=== PATIENT | male | born 1935 | race Caucasian/White ===

== ENCOUNTER → 2020-10-13 | Day surgery (SDC) | payer MEDICARE, OTHER ==
[~2020-10-13] VITALS: Ht 172.7 cm; Wt 95.2 kg
[~2020-10-13] MED LIST: AMLODIPINE BESYL5 MG PO; ASPIRIN EC81 MG PO; CETIRIZINE HCL10 MG PO; FINASTERIDE5 MG PO; FLUTICASONE PRO16 GM; JANUVIA 100MG100 MG PO; LEVOTHYROXINE100 MCG PO; LISINOPRIL40 MG PO; METFORMIN HCL500 M3 PO; PERCOCET 5-3251 EACH PO; SERTRALINE HCL50 MG PO; TAMSULOSIN HCL0.4 MG PO; VITAMIN B12-FO1 EACH PO
[2020-10-13 11:43] LABS: HCT 38.4 % (42.0-52.0); HGB 13.6 g/dl (13.2-18.0); MCH 35.4 pg (25.0-31.0); MCHC 35.4 g/dL (32.0-36.0); MPV 10.5 fL (6.0-9.5); RBC 3.84 M/uL (4.70-6.00); RDW 12.5 % (11.5-14.0); WBC 3.3 K/uL (4.0-10.5)
[2020-10-13 11:52] LABS: ALBUMIN 3.8 g/dL (3.4-5.0); CREATININE 0.77 mg/dL (0.67-1.17); GLOBULIN (CALCULATION) 3.9 g/dL; POTASSIUM 4.3 mmol/L (3.5-5.1); TOTAL PROTEIN 7.7 g/dL (6.4-8.2)
== END | disposition home or self-care (01) ==
LOC: FAS 10:35
PROVIDERS: Orthopaedic Surgery
DX: G56.01 Carpal tunnel syndrome, right upper limb (principal); I10 Essential (primary) hypertension; E78.5 Hyperlipidemia, unspecified; E03.9 Hypothyroidism, unspecified; E11.9 Type 2 diabetes mellitus without complications; Z79.82 Long term (current) use of aspirin; Z79.891 Long term (current) use of opiate analgesic; Z79.84 Long term (current) use of oral hypoglycemic drugs; Z79.899 Other long term (current) drug therapy
CPT/HCPCS: 36415; 80053; 93005; J2001; J2250; J2704; J7120